=== PATIENT | female | born 1970 | race Caucasian/White ===

== ENCOUNTER 2018-05-10 17:46 | Emergency (ER) | payer OTHER ==
--- NOTE | 2018-05-10 18:07 | EDPHY ---
General Time Seen by Provider: 05/10/18 17:53 Narrative: CHIEF COMPLAINT: Sent by electrolytic etcher, Bartholin gland excision today HISTORY OF PRESENT ILLNESS: Patient presents with her spouse at bedside with complaints of left labial pain and swelling. She states that she had pain and swelling started left leg due to have weeks ago. She was seen 1.[address] Gomez diagnosed with a Bartholin gland cyst. At that time she was treated with Cipro by mouth, Sitz bath, warm compresses. This does not resolve, and a became severe last night. She was seen today at 3:00 p.m. By OB nurse practitioner who performed an excision of her Bartholin cyst. That practitioner contacted me to notify me that she is concerned about a deeper abscess as the initial incision reaccumulated within 30 min. No systemic complaints. Her pain was 10/10 prior to the local anesthesia today. She has no previous incidence this. She history Crohn's inflammatory irritable. No previous abdominal or pelvic pathology or surgery. IUD in place. No fever. No chills. No other associated complaints or modifying factors. REVIEW OF SYSTEMS: 10 systems were reviewed and negative with the exception of the elements mentioned in the history of present illness. PCP: Dr. Katia Bullard SPECIALISTS: Anju Barone, OB Gyromario PAST MEDICAL HISTORY: Shingles remotely PAST SURGICAL HISTORY: Bartholin gland cyst excision today SOCIAL HISTORY: Never smoker. Lives independently with her spouse. Two children. 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 The left labia does have moderate swelling and mild ecchymosis. Nonpulsatile. No purulence. No surrounding cellulitis, crepitus, gangrene. Minimal bleeding from left labial mucosal incision. Skin: Warm and dry, no rash. No evidence of cellulitis the vulva or perineum. Extremities: Nontender, no pedal edema Psychiatric: Mood and affect normal DIFFERENTIAL DIAGNOSES: Including but not limited to modifying gland cyst, labial hematoma, perianal abscess, pilonidal cyst, EC fistula MDM: 5:55 p.m. Left labial pain and hematoma status post Bartholin gland excision at 3:00 p.m. Today. No packing in place. No Gaytan catheter in place. I was contacted by the OB Gyne nurse practitioner who sent her here to rule out deeper abscess. The patient is agreeable to this. There is no evidence of gangrene, cellulitis. She is well-appearing with normal vital signs. She is in no acute distress. Her local is still affective, thus her pain is 1/10. IV will be established. Her renal function proceed CT scan of the pelvis. 6:22 p.m. Creatinine is 0.7. cath lab radiology technician notified. 7:00 p.m. Notified by radiologist Dr. Pastrana. We discussed the findings of the CT as documented. No deep tissue abscess. 7:15 p.m. Patient re-evaluated. I discussed the findings of the CT scan, including a possible small residual abscess. Discussed that there is no indication for further incision and drainage at this time. She informed that she does have a prescription of clindamycin from her solar maintenance technician that she can start. We discussed routine wound care. We discussed wound re-evaluation on Sunday with her physician. We discussed ED precautions for pelvic pain, abdominal pain, fever, redness, swelling or pain. Both she and her are comfortable this plan. She would like to be discharged home. Discharged stable condition. SUPERVISION: Patient was independently examined, but I discussed the case with my secondary supervising physician Dr. Jose CONSULTATION: None. Case discussed with her current OB Nurse Practitioner, Anju Barone (Shawn Reese) Medical Decision Making: PHYSICIAN DOCUMENTATION: The patient was evaluated and managed by the Physician Mechanical System Technician. My co- signature indicates that I have reviewed this chart and I agree with the findings and plan of care as documented. I am the secondary supervising physician. (Noel Jose) - Diagnostics Imaging Results: Imaging Impressions Pelvis CT 05/10/18 18:07 Impression: Oval area of increased attenuation and thickening in the left labia measuring 4 cm. With increased attenuation and history of recent Bartholin's gland excision, this could be a postoperative hematoma in the labia. The central hypodensity measuring 1 x 2 cm could represent postsurgical seroma, hematoma, or abscess. No deeper abscess is seen within the pelvis. Results called and discussed with Shawn Reese PA-C on May 10, 2018 at 1904 hours. - Objective Vital Signs: Initial Vital Signs Temperature (C) 98.6 F 05/10/18 17:51 Heart Rate 89 05/10/18 17:51 Respiratory Rate 12 05/10/18 17:51 Blood Pressure 111/53 L 05/10/18 17:51 O2 Sat (%) 97 05/10/18 17:51 O2 Delivery Mode Room Air Allergies/Adverse Reactions: amoxicillin Allergy (Verified 05/10/18 18:02) naloxone [From Narcan] Allergy (Verified 05/10/18 18:02) Penicillins Allergy (Verified 05/10/18 18:02) Home Medications: Medication Instructions Recorded Aleve 05/10/18 Loratadine 05/10/18 oxyCODONE HCL/ACETAMINOPHEN 1 each PO Q4-6PRN PRN #11 tablet 05/10/18 [Percocet 5-325 mg Tablet] Laboratory Results: Laboratory Results 05/10/18 18:20 05/10/18 05/10/18 18:21 18:20 WBC 14.43 10^3/uL H 10^3/uL (3.80-9.50) RBC 4.45 10^6/uL 10^6/uL (4.18-5.33) Hgb 12.8 g/dL g/dL (12.6-16.3) POC Hgb 13.6 gm/dL gm/dL (12.6-16.3) Hct 39.1 % % (38.0-47.0) POC Hct 40 % % (38-47) MCV 87.9 fL fL (81.5-99.8) MCH 28.8 pg pg (27.9-34.1) MCHC 32.7 g/dL g/dL (32.4-36.7) RDW 13.0 % % (11.5-15.2) Plt Count 219 10^3/uL 10^3/uL (150-400) MPV 10.5 fL fL (8.7-11.7) Neut % (Auto) 83.9 % H % (39.3-74.2) Lymph % (Auto) 12.9 % L % (15.0-45.0) [place] % (Auto) 1.0 % L % (4.5-13.0) Eos % (Auto) 1.5 % % (0.6-7.6) Baso % (Auto) 0.3 % % (0.3-1.7) Nucleat RBC Rel Count 0.0 % % (0.0-0.2) Absolute Neuts (auto) 12.11 10^3/uL H 10^3/uL (1.70-6.50) Absolute Lymphs (auto) 1.86 10^3/uL 10^3/uL (1.00-3.00) Absolute Monos (auto) 0.15 10^3/uL L 10^3/uL (0.30-0.80) Absolute Eos (auto) 0.21 10^3/uL 10^3/uL (0.03-0.40) Absolute Basos (auto) 0.04 10^3/uL 10^3/uL (0.02-0.10) Absolute Nucleated RBC 0.00 10^3/uL 10^3/uL (0-0.01) Immature Gran % 0.4 % % (0.0-1.1) Immature Gran # 0.06 10^3/uL 10^3/uL (0.00-0.10) POC Sodium 141 mEq/L mEq/L (135-145) POC Potassium 3.7 mEq/L mEq/L (3.3-5.0) POC Chloride 104 mEq/L mEq/L (97-110) POC BUN 16 mg/dL mg/dL (7-23) POC Creatinine 0.7 mg/dL mg/dL (0.6-1.0) POC Glucose 93 mg/dL mg/dL (70-100) Medications Given: Discontinued Medications Sodium Chloride (Ns) 1,000 mls @ 0 mls/hr IV EDNOW ONE; Wide Open PRN Reason: Protocol Stop: 05/10/18 18:09 Last Admin: 05/10/18 18:42 Dose: 1,000 mls Point of Care Test Results: Chemistry 05/10/18 18:21 POC Sodium 141 mEq/L mEq/L (135-145) POC Potassium 3.7 mEq/L mEq/L (3.3-5.0) POC Chloride 104 mEq/L mEq/L (97-110) POC BUN 16 mg/dL mg/dL (7-23) POC Creatinine 0.7 mg/dL mg/dL (0.6-1.0) POC Glucose 93 mg/dL mg/dL (70-100) ISTAT H&H 05/10/18 18:21 POC Hgb 13.6 gm/dL gm/dL (12.6-16.3) POC Hct 40 % % (38-47) Departure - Departure Disposition: Home, Routine, Self-Care Clinical Impression: Bartholin gland cyst, Hematoma of labia majora Condition: Good Instructions: Bartholin Cyst (ED), Incision and Drainage (ED), Hematoma (ED) Additional Instructions: 1. Daily wound care as discussed with warm compresses and short duration of ice compresses this evening 2. Kurv-rls-[id number] anti-inflammatories as discussed as needed 3. Pain medication as prescribed as needed 4. Follow up with Ob physician early next week for wound re-evaluation 5. ED precautions for return of pain, increasing swelling, redness, warmth, fever, pelvic pain Referrals: Katia Bullard MD [Primary Care Provider] - As per Instructions Anju Quintanilla CNM [Certified Nurse Keyboarding Clerk] - As per Instructions Prescriptions: oxyCODONE HCL/ACETAMINOPHEN [Percocet 5-325 mg Tablet] 1 each PO Q4-6PRN PRN # 11 tablet PRN Reason: Pain, Breakthrough
[2018-05-10] MEDS ORDERED: NS 1,000 ML IV ONE (18:08)
[2018-05-10] MEDS ORDERED: IOPAMIDOL (ISOVUE-300) 100 ML BTL ONE (18:17)
[2018-05-10 18:38] LABS: PLATELET COUNT 219 10^3/uL (150-400)
[2018-05-10 19:27] VITALS: BP 114/52
== END 2018-05-10 19:34 | disposition home or self-care (01) ==
DX: N90.89 Other specified noninflammatory disorders of vulva and perineum (principal); N75.0 Cyst of Bartholin's gland; E86.9 Volume depletion, unspecified; Z98.890 Other specified postprocedural states
CPT/HCPCS: 82435-PO; 82565-PO; 82947-PO; 84132-PO; 84295-PO; 84520-PO; 85014-PO; Q9967